=== PATIENT | male | born 1960 | race Caucasian/White ===

== ENCOUNTER 2023-06-13 13:05 | Outpatient (CLI) | payer MEDICARE | END 2023-06-13 13:06 | disposition home or self-care (01) | LOC: CSHMRI 13:05 | PROVIDERS: ATTEND Orthopaedic Surgery | DX: M51.17 Intervertebral disc disorders with radiculopathy, lumbosacral region (principal); M51.87 Other intervertebral disc disorders, lumbosacral region; Z98.1 Arthrodesis status; M47.27 Other spondylosis with radiculopathy, lumbosacral region; M48.07 Spinal stenosis, lumbosacral region | CPT/HCPCS: 72148 ==